=== PATIENT | male | born 1990 | race Caucasian/White ===

== ENCOUNTER 2016-11-03 17:14 | Emergency (ER) | payer BC, OTHER ==
[~2016-11-03] VITALS: Ht 182.9 cm; Wt 104.5 kg
[~2016-11-03 17:14] MED LIST: CYCL10TA6 PO
[2016-11-03 17:16] VITALS: TEMP 36.8; Ht 182.9 cm; Wt 104.5 kg
[2016-11-03] MEDS ORDERED: METHYLPREDNISOLONE 125 MG VIAL IV STA (17:27)
[2016-11-03] MEDS ORDERED: SODIUM CHLORIDE 0.9% 1000ML 1,000 ML IV STA (17:27)
[2016-11-03] MEDS ORDERED: FAMOTIDINE IV INJ 40 MG in DEXTROSE 5% 100ML 100 ML IV SCH (17:30)
--- NOTE | 2016-11-03 18:21 | EMERGENCY ROOM VISIT NOTE ---
History Report prepared by Bridgett: Eliceo Ross Under the Supervision of: Ruy MontoyaO. First contact with patient: 17:21 Chief Complaint: ALLERGIC REACTION Stated Complaint: BEE STING - ALLERGIC History of Present Illness The patient is a 26 year old male who presents to the Emergency Room with complaints of an allergic reaction that began this morning at 1130. At this time , he was stung by two bees, one on each of his hands. He then began to experience swelling to his bilateral hands, eyes, face, and mildly to the throat. He took 2 Benadryl at 1200, 1430, and then again at 1700. He notes his tongue began to feel "funny" an hour ago. He is able to swallow and is having no trouble breathing. This has never happened to him before. He is having some mild chest tightness as well. Pt denies headache, change in vision, fevers, shortness of breath, trouble swallowing, nausea, vomiting, diarrhea, pain with urination, and melena. He denies any past medical history. Onset: 6 hours ago Position: other (global) Symptom Intensity: moderate Quality: other (Allergic reaction) Timing: constant Associated Symptoms: + chest pain (tightness), No fevers, No headache, No SOB, No nausea, No vomiting, No melena, No diarrhea, No urinary symptoms Note: He is experiencing facial swelling, eye swelling, hand swelling, and mild throat swelling. Review of Systems See HPI for pertinent positives & negatives. A total of 10 systems reviewed and were otherwise negative. Past Medical & Surgical Medical Problems: (1) No significant past medical history Surgical Problems: (1) No significant past surgical history Family History Patient reports no known family medical history. Social History Smoking Status: Never Smoker Smokeless Tobacco Use: No Alcohol Use: occasionally Drug Use: none Marital Status: Housing Status: lives with family Occupation Status: employed Current/Historical Medications Scheduled Cetirizine (Zyrtec), 10 MG PO DAILY Allergies Coded Allergies: Amoxicillin (Verified Allergy, Unknown, childhood allery, 03/02/15) BEE STING (Verified Allergy, Unknown, anaphylaxis, 03/02/15) Physical Exam Vital Signs Date Time Temp Pulse Resp B/P (MAP) Pulse Ox O2 Delivery O2 Flow Rate FiO2 11/03/16 19:48 66 18 130/72 96 11/03/16 18:49 68 16 137/75 97 Room Air 11/03/16 17:16 36.8 79 18 149/94 96 Room Air Physical Exam GENERAL: alert, well appearing, well nourished, no distress, non-toxic, sitting up in bed, normal phonation EYE EXAM: normal conjunctiva OROPHARYNX: no exudate, no erythema, lips, buccal mucosa, and tongue normal and mucous membranes are moist NECK: supple, no nuchal rigidity, no adenopathy, non-tender, no stridor LUNGS: Clear to auscultation. Normal chest wall mechanics HEART: no murmurs, S1 normal and S2 normal ABDOMEN: abdomen soft, non-tender, normo-active bowel sounds, no masses, no rebound or guarding. BACK: Back is symmetrical on inspection and there is no deformity, no midline tenderness, no CVA tenderness. UPPER EXTREMITIES: Swelling on the dorsal aspect of the right hand and distal forearm. Minimal swelling to the left 3rd digit. No other swelling or erythema. Radial pulses equal bilaterally. Grasp and abduction of digits intact. LOWER EXTREMITIES: No pitting edema. NEURO EXAM: Normal sensorium. Medical Decision & Procedures Medications Administered Medications (Trade) Dose Ordered Sig/Serenity Route Start Time Stop Time Status Last Admin Dose Admin Sodium Chloride 1,000 ml @ 999 mls/hr Q1H1M STAT IV 11/03/16 17:27 11/03/16 18:27 DC 11/03/16 17:50 999 MLS/HR Famotidine 40 mg/ Dextrose 104 ml @ 200 mls/hr NOW IV 11/03/16 17:30 11/03/16 19:58 DC 11/03/16 19:19 200 MLS/HR Methylprednisolone Sodium Succinate (Solu-Medrol IV) 125 mg NOW STAT IV 11/03/16 17:27 11/03/16 17:29 DC 11/03/16 17:50 125 MG ECG Indication: other (Allergic Reaction) Rate (beats per minute): 79 Rhythm: sinus rhythm Findings: T-wave inversion (3), other (J point elevation in septal leads) Comparison ECG Date: no prior available ED Course ED COURSE: Vital signs were reviewed and showed hypertension. The patients medical record was reviewed The above diagnostic studies were performed and reviewed. ED treatments and interventions as stated above. 1721: The patient was evaluated in room C12. A complete history and physical examination was performed. 1727: Ordered Solu-Medrol IV 125 mg IV, Sodium Chloride 1000 ml @ 999 mls/hr IV 1730: Ordered Famotidine 40 mg/ Dextrose 104 ml @ 200 mls/hr 1900: Upon reevaluation, the patient is back to baseline. I discussed my findings with the patient and he understands and agrees with the treatment plan. The patient remained stable while under my care. The patient appeared well at the time of discharge. Medical Decision Differential diagnosis: Etiologies such as allergic reaction, anaphylaxis, urticaria, Prajapati-Krishan syndrome, toxic epidermal necrolysis, erythema multiforme, cellulitis, as well as others were entertained. Patient is a 26-year-old male who presents the ER following being stung by 2 bees at 11 this morning. Patient is complaining of swelling of his hands a little tightness in his throat. He has no other complaints. He took 50 mg of Benadryl on 3 separate occasions with the last being 20 minutes prior to arrival. Upon arrival he is tolerating secretions and has normal phonation. No stridor. Lungs are clear. Exam is otherwise benign with exception of the hands. IV was established and he was given normal saline fluids, famotidine, and steroids. I did not re-dose Benadryl as he took at less than 20 minutes ago. Patient was monitored and was feeling better. He was discharged to follow -up with his primary care doctor with complete resolution of his symptoms. Discussed with Pt concerning signs and symptoms to watch out for. Pt was instructed to follow up with their PCP and discussed with the patient their option to return to the ED at anytime for persistent or worsening symptoms. The appropriate anticipatory guidance and out-patient management, including indications for return to the emergency department, were explained at length to the patient and understood. Medication Reconcilliation Current Medication List: was personally reviewed by me Blood Pressure Screening Patient's blood pressure: Elevated blood pressure Blood pressure disposition: Elevated BP felt to be situational Impression Primary Impression: Allergic reaction Scribe Attestation The scribe's documentation has been prepared under my direction and personally reviewed by me in its entirety. I confirm that the note above accurately reflects all work, treatment, procedures, and medical decision making performed by me. Departure Information Dispostion Home / Self-Care Referrals No Doctor, Assigned (PCP) Forms HOME CARE DOCUMENTATION FORM, IMPORTANT VISIT INFORMATION Patient Instructions ED Allergic Reaction Local Other, First Aid Allergic React, My [facility] Additional Instructions Please follow up with your primary care doctor or if you are a student, [facility] with in the next 24 hours. Any worsening of your symptoms, please return to the ED immediately. This includes any fevers greater than 100.4, worsening pain, chest pain, shortness breath, persistent nausea, vomiting, unable to eat or drink, or any other concerning signs or symptoms from your standpoint. You were given medications during this visit that will inhibit your ability to drive, operate machinery and work. Please do NOT drive, operate machinery, drink alcohol or work for the next 8hrs as you previously received Benadryl. Problem Qualifiers Primary Impression: Allergic reaction Encounter type: initial encounter Qualified Codes: T78.40XA - Allergy, unspecified, initial encounter
[2016-11-03] MEDS ORDERED: CETI10TA84 PO (18:53)
[2016-11-03 19:48] VITALS: BP 130/72; PULSE 66; O2SAT 96
== END 2016-11-03 19:50 | disposition home or self-care (01) ==
LOC: C.EDB 17:15 → C.EDC 19:50
DX: T63.441A Toxic effect of venom of bees, accidental (unintentional), initial encounter (principal); R07.9 Chest pain, unspecified; Z79.899 Other long term (current) drug therapy